=== PATIENT | female | born 1940 | race Caucasian/White ===

== ENCOUNTER 2018-02-19 13:25 | Emergency (ER) | payer MEDICARE, BC ==
[~2018-02-19] VITALS: Ht 162.6 cm; Wt 40.0 kg
[~2018-02-19 13:25] MED LIST: BIOT1TAB2 PO; CHOL10002 PO
[2018-02-19 13:46] VITALS: BP 156/98
== END 2018-02-19 17:52 | disposition home or self-care (01) ==
LOC: ER 13:25
DX: K64.9 Unspecified hemorrhoids (principal); Z90.710 Acquired absence of both cervix and uterus; Z88.8 Allergy status to other drugs, medicaments and biological substances; Z79.899 Other long term (current) drug therapy
CPT/HCPCS: 99283

== ENCOUNTER 2023-11-15 12:31 | Inpatient (IN) | payer MEDICARE, BC ==
[~2023-11-15] VITALS: Ht 162.6 cm; Wt 50.9 kg
[~2023-11-15 12:31] MED LIST changes: +CEPH500C2 PO; +LISI20TA28 PO; +MOME45CR3 TP; +PANT40TA54 PO; +POTA-366 PO; +[UNRECOGNIZED DRUG - CODE] TOP
[2023-11-15] MEDS ORDERED: LIDOcaine 4% LTA kit 4ml solution TP ONE (13:00)
[2023-11-15 13:29] LABS: BASOPHILS # (AUTO) 0.2 X10'3 (0-0.2); EOSINOPHILS % (AUTO) 0.4 % (0-6); HEMATOCRIT 41.3 % (35.0-45.0); HEMOGLOBIN 13.9 g/dl (12.0-16.0); LYMPHOCYTES # (AUTO) 0.7 X10'3 (1.1-4.8); LYMPHOCYTES % (AUTO) 8.6 % (21-51); MEAN CORPUSCULAR HEMOGLOBIN 34.3 PG (27.0-31.0); MEAN CORPUSCULAR HGB CONC 33.5 g/dL (33.0-36.5); MEAN CORPUSCULAR VOLUME 102.4 FL (78-98); MEAN PLATELET VOLUME 7.7 FL (7.4-10.4); MONOCYTES # (AUTO) 0.3 X10'3 (0-0.9); MONOCYTES % (AUTO) 4.2 % (2-12); NEUTROPHILS # (AUTO) 6.9 X10'3 (1.8-7.7); NEUTROPHILS % (AUTO) 84.8 % (42-75); PLATELET COUNT 274 X10'3 (140-440); RED BLOOD COUNT 4.04 X10'6 (4.20-5.60); RED CELL DISTRIBUTION WIDTH 12.9 % (11.5-14.5); WHITE BLOOD COUNT 8.2 X10'3 (4.5-11.0)
[2023-11-15 13:46] LABS: ALANINE AMINOTRANSFERASE 24 U/L (12-78); ALBUMIN 3.7 G/DL (3.4-5.0); ALBUMIN/GLOBULIN RATIO 0.9 (1.1-1.5); ALKALINE PHOSPHATASE 51 IU/L (46-116); ANION GAP 10 (8-16); ASPARTATE AMINO TRANSFERASE 26 U/L (10-37); BILIRUBIN,TOTAL 0.7 MG/DL (0.1-1.0); BLOOD UREA NITROGEN 12 MG/DL (7-18); BUN/CREATININE RATIO 22.2 (10.0-20.0); CALCIUM 9.3 MG/DL (8.5-10.1); CHLORIDE 94 MMOL/L (99-107); CREATININE 0.54 MG/DL (0.40-0.90); GLUCOSE 108 MG/DL (70-104); LIPASE 24 U/L (16-77); POTASSIUM 3.8 MMOL/L (3.5-5.1); SODIUM 131 MMOL/L (135-145); TOTAL CARBON DIOXIDE 26.6 MMOL/L (24-32); TOTAL PROTEIN 7.8 G/DL (6.4-8.2); eCRCL 61 ML/MIN; eGFR > 90 ML/MIN
[2023-11-15] MEDS ORDERED: morphine 2 MG/ML inj. syringe IV PRN ×2 (14:40→17:00)
[2023-11-15] MEDS ORDERED: ondansetron/PF 4mg/2ml inj IV ONE (14:40)
[2023-11-15] MEDS ORDERED: normal saline 1000ml 1,000 ML IV ONE (14:40)
[2023-11-15] MEDS ORDERED: iohexol 300mg/ml 100ml inj. ONE ×2 (14:41→14:54)
[2023-11-15 15:16] LABS: BILIRUBIN,URINE NEGATIVE (Neg); CLARITY,URINE SLIGHTLY CLOUDY (Clear); COLOR,URINE YELLOW (Yellow); GLUCOSE, URINE NEGATIVE (Neg); KETONES,URINE 15 mg/dl (Neg); LEUKOCYTE ESTERASE ,URINE NEGATIVE (Neg); NITRITES, URINE NEGATIVE (Neg); OCCULT BLOOD,URINE TRACE-INTACT (Neg); PROTEIN,URINE NEGATIVE (Neg); UROBILINOGEN,URINE 0.2 E.U/dL (0.2-1.0)
[2023-11-15 15:19] LABS: UA COLLECTION TYPE OTHER
[2023-11-15] MEDS ORDERED: LIDOcaine 2% 10ml TOPICAL JELLY (Urojet) MM STA (16:07)
[2023-11-15] MEDS ORDERED: LidoCAINE 2% Topical Jelly 11mL syringe MM STA (16:13)
[2023-11-15 16:19] LABS: BACTERIA,URINE FEW /HPF (Neg)
[2023-11-15 16:21] LABS: RBC,URINE 0-2 /HPF (0-2); SQUAMOUS EPITHELIAL CELL,UR FEW /LPF (FEW); WBC,URINE 0-4 /HPF (0-4)
[2023-11-15] MEDS ORDERED: magnesium Cl slow-release 64mg tablet PO PRN (17:00)
[2023-11-15] MEDS ORDERED: ondansetron/PF 4mg/2ml inj IV PRN (17:00)
[2023-11-15] MEDS ORDERED: potassium Cl 40MEQ/1/2NS 520ml 520 ML IV PRN (17:00)
[2023-11-15] MEDS ORDERED: magnesium 2GM in 50ml NS 50 ML IV PRN (17:00)
[2023-11-15] MEDS ORDERED: magnesium 4gm in 100ml NS 100 ML IV PRN (17:00)
[2023-11-15] MEDS ORDERED: acetaminophen 325mg tablet PO PRN (17:00)
[2023-11-15] MEDS ORDERED: potassium Cl 20 mEq SR tablet PO PRN ×2 (17:00)
[2023-11-15] MEDS: normal saline 1000ml 1,000 ML IV SCH (17:36)
[2023-11-15] MEDS ORDERED: hydrALAZINE 20mg/ml inj. IV ONE (17:50)
[2023-11-15 17:56] LABS: PRO BRAIN NATRIURETIC PEPTIDE 1054 PG/ML (0-450)
[2023-11-15] MEDS ORDERED: metoclopramide 5 mg/ml inj IV PRN (18:05)
[2023-11-15] MEDS ORDERED: pantoprazole 40 MG vial IV SCH (19:00)
[2023-11-15] MEDS: morphine 2 MG/ML inj. syringe IV PRN (19:03)
[2023-11-15] MEDS: K and/or MAG REPLACEMENT MC SCH (20:00)
[2023-11-16] VITALS (7 sets, daily range): BP systolic 124–192; BP diastolic 63–94; PULSE 75–109; RESP 13–18; TEMP 97.4–98.2; O2SAT 78–94
[2023-11-16] MEDS: morphine 2 MG/ML inj. syringe IV PRN ×3 (04:25→21:31)
[2023-11-16] MEDS ORDERED: pantoprazole 40 MG/NS 100ML add-vantage BAG IV SCH (07:03)
[2023-11-16 07:43] LABS: BASOPHILS % (AUTO) 0.3 % (0-1); EOSINOPHILS % (AUTO) 0.5 % (0-6); HEMATOCRIT 37.4 % (35.0-45.0); HEMOGLOBIN 12.7 g/dl (12.0-16.0); LYMPHOCYTES # (AUTO) 0.9 X10'3 (1.1-4.8); LYMPHOCYTES % (AUTO) 12.4 % (21-51); MEAN CORPUSCULAR HEMOGLOBIN 34.6 PG (27.0-31.0); MEAN CORPUSCULAR VOLUME 101.8 FL (78-98); MEAN PLATELET VOLUME 7.8 FL (7.4-10.4); MONOCYTES # (AUTO) 0.8 X10'3 (0-0.9); MONOCYTES % (AUTO) 10.3 % (2-12); NEUTROPHILS # (AUTO) 5.6 X10'3 (1.8-7.7); NEUTROPHILS % (AUTO) 76.5 % (42-75); PLATELET COUNT 227 X10'3 (140-440); RED BLOOD COUNT 3.68 X10'6 (4.20-5.60); WHITE BLOOD COUNT 7.3 X10'3 (4.5-11.0)
[2023-11-16] MEDS: K and/or MAG REPLACEMENT MC SCH ×2 (08:00→20:00)
[2023-11-16] MEDS: pantoprazole 40MG/NS 100ML BAG 100 ML IV SCH (08:14)
[2023-11-16] MEDS: hydrALAZINE 20mg/ml inj. IV PRN ×2 (08:20→17:36)
[2023-11-16 08:28] LABS: ALANINE AMINOTRANSFERASE 14 U/L (12-78); ALBUMIN/GLOBULIN RATIO 0.8 (1.1-1.5); ALKALINE PHOSPHATASE 50 IU/L (46-116); ANION GAP 9 (8-16); ASPARTATE AMINO TRANSFERASE 19 U/L (10-37); BILIRUBIN,TOTAL 0.6 MG/DL (0.1-1.0); BLOOD UREA NITROGEN 6 MG/DL (7-18); BUN/CREATININE RATIO 10.2 (10.0-20.0); CALCIUM 8.3 MG/DL (8.5-10.1); CHLORIDE 98 MMOL/L (99-107); CREATININE 0.59 MG/DL (0.40-0.90); GLUCOSE 110 MG/DL (70-104); POTASSIUM 3.5 MMOL/L (3.5-5.1); SODIUM 135 MMOL/L (135-145); TOTAL CARBON DIOXIDE 27.7 MMOL/L (24-32); TOTAL PROTEIN 6.6 G/DL (6.4-8.2); eCRCL 56 ML/MIN; eGFR > 90 ML/MIN
[2023-11-16] MEDS: normal saline 1000ml 1,000 ML IV SCH ×2 (08:31→21:32)
[2023-11-16 08:32] LABS: MAGNESIUM 0.9 MG/DL (1.5-2.4)
[2023-11-16] MEDS ORDERED: diatr meglu/diatrizoate 30ml oral sol.-(3 dose) bottle PO ONE (11:10)
[2023-11-16] MEDS: lisinopril 20mg tablet PO SCH (14:00)
[2023-11-16] MEDS ORDERED: lisinopril 20mg tablet PO ONE (20:00)
[2023-11-16] MEDS: diazepam inj 5 MG/ML inj. IV PRN (21:31)
[2023-11-17 02:00] VITALS: BP 154/70; PULSE 101; RESP 18; TEMP 97.4; O2SAT 93
[2023-11-17] MEDS: diazepam inj 5 MG/ML inj. IV PRN (04:28)
[2023-11-17] MEDS: morphine 2 MG/ML inj. syringe IV PRN (04:32)
[2023-11-17 06:10] LABS: BASOPHILS % (AUTO) 0.3 % (0-1); EOSINOPHILS % (AUTO) 0.4 % (0-6); HEMOGLOBIN 12.1 g/dl (12.0-16.0); LYMPHOCYTES # (AUTO) 0.6 X10'3 (1.1-4.8); LYMPHOCYTES % (AUTO) 6.9 % (21-51); MEAN CORPUSCULAR HEMOGLOBIN 35.1 PG (27.0-31.0); MEAN CORPUSCULAR HGB CONC 34.4 g/dL (33.0-36.5); MEAN CORPUSCULAR VOLUME 102.1 FL (78-98); MEAN PLATELET VOLUME 7.8 FL (7.4-10.4); MONOCYTES # (AUTO) 0.8 X10'3 (0-0.9); MONOCYTES % (AUTO) 8.2 % (2-12); NEUTROPHILS # (AUTO) 7.9 X10'3 (1.8-7.7); NEUTROPHILS % (AUTO) 84.2 % (42-75); PLATELET COUNT 206 X10'3 (140-440); RED BLOOD COUNT 3.43 X10'6 (4.20-5.60); RED CELL DISTRIBUTION WIDTH 13.3 % (11.5-14.5); WHITE BLOOD COUNT 9.3 X10'3 (4.5-11.0)
[2023-11-17 06:24] LABS: ALANINE AMINOTRANSFERASE 21 U/L (12-78); ALBUMIN 2.8 G/DL (3.4-5.0); ALBUMIN/GLOBULIN RATIO 0.8 (1.1-1.5); ALKALINE PHOSPHATASE 44 IU/L (46-116); ANION GAP 6 (8-16); ASPARTATE AMINO TRANSFERASE 16 U/L (10-37); BILIRUBIN,TOTAL 0.7 MG/DL (0.1-1.0); BLOOD UREA NITROGEN 5 MG/DL (7-18); BUN/CREATININE RATIO 11.4 (10.0-20.0); CALCIUM 7.8 MG/DL (8.5-10.1); CHLORIDE 99 MMOL/L (99-107); CREATININE 0.44 MG/DL (0.40-0.90); GLUCOSE 121 MG/DL (70-104); POTASSIUM 3.3 MMOL/L (3.5-5.1); SODIUM 133 MMOL/L (135-145); TOTAL CARBON DIOXIDE 28.5 MMOL/L (24-32); TOTAL PROTEIN 6.3 G/DL (6.4-8.2); eCRCL 75 ML/MIN; eGFR > 90 ML/MIN
[2023-11-17 07:00] VITALS: BP 161/83; PULSE 90; RESP 18; TEMP 97.6; O2SAT 98
[2023-11-17] MEDS: K and/or MAG REPLACEMENT MC SCH (08:00)
[2023-11-17] MEDS: pantoprazole 40MG/NS 100ML BAG 100 ML IV SCH (08:36)
[2023-11-17 08:37] VITALS: BP_SYST 161; PULSE 90
[2023-11-17] MEDS: lisinopril 20mg tablet PO SCH (08:37)
== END 2023-11-17 12:30 | disposition home health service (06) | DRG 388 ==
LOC: ER 12:31 → ED HOLD 17:02 → PCU 3S 11-16 04:45
PROVIDERS: ADMIT Student in an Organized Health Care Education/Training Program; ATTEND Student in an Organized Health Care Education/Training Program
PROC: 0D9670Z Drainage of Stomach with Drainage Device, Via Natural or Artificial Opening (ICD-10-PCS; principal; 2023-11-15)
PROC: BW211ZZ Computerized Tomography (CT Scan) of Abdomen and Pelvis using Low Osmolar Contrast (ICD-10-PCS; 2023-11-16)
DX: K56.609 Unspecified intestinal obstruction, unspecified as to partial versus complete obstruction (principal); U07.1 COVID-19; I16.9 Hypertensive crisis, unspecified; K21.9 Gastro-esophageal reflux disease without esophagitis; I10 Essential (primary) hypertension; K52.9 Noninfective gastroenteritis and colitis, unspecified; Z90.49 Acquired absence of other specified parts of digestive tract; Z90.710 Acquired absence of both cervix and uterus; Z80.3 Family history of malignant neoplasm of breast; Z80.0 Family history of malignant neoplasm of digestive organs
CPT/HCPCS: 36415; 71045; 74176; 74177; 80053; 81001; 83690; 83735; 83880; 84484; 85025; 87811; 99285; A4615; C9113; G0378; J0360; J2270; J2405; J3360; J3475; J3490; J7030; Q9963; Q9967